=== PATIENT | male | born 1980 | race Caucasian/White ===

== ENCOUNTER → 2018-11-27 | Outpatient (CLI) | payer BC ==
--- NOTE | 2018-11-28 09:42 | PCVCIMAG ---
APPROVED REPORT Study performed: 11/27/2018 09:17:56 Exam: Stress Echocardiogram Indication: Chest pain,Tachycardia,HTN Patient Location: Echo lab Stress Nurse: Micaela Garrido RN Room #: 2 Status: routine Ht: 6 ft 1 in HR: 67 bpm BP: 122/90 mmHg Rhythm: NSR Medical History Medical History: HTN Cardiac Risk Factors: HTN Previous Cardiac Procedures: none Pretest Chest Pain Characteristics: No chest pain Exercise History: Physically active Procedure The patient underwent an Exercise Stress Test using the Wander Protocol. Blood pressure, heart rate, and EKG were monitored. An Echocardiogram was performed by appliance repair technician in four stages in quad fashion. At peak stress, four selected images were obtained and placed side by side with resting images for comparison. Stress Test Details Stress Test: Exercise stress testing was performed using a Wander protocol. HR Resting HR: 67 bpmMax Heart Rate (APMHR): 181 bpm Max HR Achieved: 169 bpmTarget HR (85% APMHR): 153 bpm % of APMHR: 93 Recovery HR: 111 bpm HR response to stress: Normal HR response to stress BP Resting BP: 122/90 mmHg Max BP: 144/80 mmHg Recovery BP: 118/78 mmHg BP response to stress: Normal blood pressure response to stress. ECG Resting ECG: Sinus Rhythm Stress ECG: Sinus Rhythm ST Change: Non-ischemic Arrhythmia: Rare PVCs Recovery ECG: Sinus Rhythm Recovery ST Change: Non-ischemic Recovery Arrhythmia: Rare PVCs Clinical Reason for Termination: Maximal effort Stress Symptoms: fatigue Exercise duration: 13 min 24 sec Highest Stage Achieved: Stage 5: 5.0 mph at 18% grade. Exercise capacity: 17.2 METs Overall Exercise Capacity for Age: Excellent Scale: Active Angina Score: None No complications. Stress ECG Conclusion The patient exercised according to the WANDER protocol for 13:24 mins; achieving a work level of 17.2 METS. The resting heart rate of 67 bpm diane to a maximum heart rate of 169 bpm. This value represent 93% of the maximal, age-predicted heart rate. The resting blood pressure of 122/90 mmHg, diane to a maximum blood pressure of 144/80 mmHg. The exercise test was stopped due to fatigue. Pre-Stress Echo The resting Echocardiogram showed normal left ventricular contractility with an estimated Ejection Fraction of about 55-60%. Normal wall motion in all segments on baseline images. Post-Stress Echo The stress Echocardiogram showed normal left ventricular contractility with an estimated Ejection Fraction of about 65-70%. Normal augmentation of wall motion in all segments on post stress images. Clinical No clinical or ECG evidence for ischemia. Conclusion Clinical Response: Non-ischemic Exercise Capacity: Superior Stress ECG Response: Non-ischemic Stress Echo Images: Non-ischemic No clinical, EKG or echocardiographic evidence for ischemia. No echocardiographic evidence for exercise induced ischemia. Normal stress echocardiogram with maximal exercise stress. 1. Low risk study No prior study available for comparison. <Conclusion> No clinical, EKG or echocardiographic evidence for ischemia. No echocardiographic evidence for exercise induced ischemia. Normal stress echocardiogram with maximal exercise stress. 1. Low risk study
== END | disposition home or self-care (01) ==
LOC: PCVCIMAG 09:11
PROVIDERS: ATTEND Internal Medicine
DX: I15.9 Secondary hypertension, unspecified (principal); R07.9 Chest pain, unspecified; I10 Essential (primary) hypertension; Z88.0 Allergy status to penicillin
CPT/HCPCS: 93325; 93351